=== PATIENT | female | born 1980 ===

== ENCOUNTER 2019-02-02 08:30 | Emergency (ER) | payer OTHER ==
[2019-02-02 08:30] VITALS: BMI 36.6
[2019-02-02 09:33] LABS: SQUAMOUS EPITHIAL 5 /hpf (0-5); URINE BACTERIA FEW (<OCC); URINE BILIRUBIN NEGATIVE (NEGATIVE); URINE BLOOD NEGATIVE (NEGATIVE); URINE CLARITY Hazy (Clear); URINE COLOR Yellow (YELLOW); URINE GLUCOSE (UA) NORMAL (Normal); URINE LEUKOCYTE ESTERASE NEG Leu/uL (Negative); URINE PROTEIN NEGATIVE (NEGATIVE); URINE UROBILINOGEN NORMAL mg/dL (0.2-1.0)
[2019-02-02] MEDS ORDERED: Sodium Chloride 0.9% 1,000 ML IV ONE (09:43)
[2019-02-02 10:02] LABS: BASO # 0.1 K/uL (0.0-0.2); BASO % 0.6 % (0.0-2.0); EOS # 0.2 K/uL (0.0-0.7); HEMOGLOBIN 12.3 g/dL (11.0-16.0); LYMPH # 3.1 K/uL (1.0-4.3); LYMPH % 29.6 % (20.0-40.0); MEAN CORPUSCULAR HEMOGLOBIN 26.2 pg (27.0-31.0); MEAN CORPUSCULAR HGB CONC 31.9 g/dL (33.0-37.0); MONO # 0.5 K/uL (0.0-0.8); MONO % 4.6 % (0.0-10.0); NEUT # 6.6 K/uL (1.8-7.0); NEUT % 63.2 % (50.0-75.0); RBC 4.68 Mil/uL (3.80-5.20); RED CELL DISTRIBUTION WIDTH 14.8 % (11.5-14.5); WHITE BLOOD COUNT 10.5 K/uL (4.8-10.8)
[2019-02-02] MEDS ORDERED: Sodium Chloride 0.9% 1,000 ML ONE (10:03)
[2019-02-02 10:16] LABS: ALB/GLOB RATIO 1.3 (1.0-2.1); ALBUMIN 4.5 g/dL (3.5-5.0); ALT/SGPT 47 U/L (9-52); AST/SGOT 47 U/L (14-36); BLOOD UREA NITROGEN 15 mg/dL (7-17); CALCIUM 9.2 mg/dl (8.6-10.4); GFR NON-AFRICAN AMERICAN > 60; LIPASE 50 U/L (23-300)
--- NOTE | 2019-02-02 10:22 | C.PDOC ---
History Of Present Illness 38 y/o female presents to the ER complaining of lower abdominal pain with associated nausea which has been present for the past 4 days. Patient states that she has history of irregular periods, ovarian cysts and possibly endometriosis. Patient reports that her normal LMP was on 10/26/18-11/05/18. She notes that she had some light brown vaginal bleeding in December and January 2019. She has history of miscarriages and D&C's. Denies having fever,chills, CP,SOB,vomiting, vaginal discharge, and vaginal bleeding. Time Seen by Provider: 02/02/19 09:06 Chief Complaint (Nursing): Female Genitourinary History Per: Patient History/Exam Limitations: no limitations Past Medical History Reviewed: Historical Data, Nursing Documentation, Vital Signs Vital Signs: Last Vital Signs Temp 98.4 F 02/02/19 08:37 Pulse 62 02/02/19 08:37 Resp 17 02/02/19 08:37 BP 146/103 H 02/02/19 08:37 Pulse Ox 100 02/02/19 08:37 - Medical History PMH: HTN (NO MEDS), Hypercholesterolemia (NO MEDS) Denies: Chronic Kidney Disease Other Surgeries: Hx of surgeries Family History: States: No Known Family Hx - Social History Hx Alcohol Use: Yes Hx Substance Use: No - Immunization History Hx Tetanus Toxoid Vaccination: No Hx Influenza Vaccination: No Hx Pneumococcal Vaccination: No Review Of Systems Except As Marked, All Systems Reviewed And Found Negative. Constitutional: Negative for: Fever, Chills Cardiovascular: Negative for: Chest Pain Respiratory: Negative for: Shortness of Breath Gastrointestinal: Positive for: Nausea, Abdominal Pain. Negative for: Vomiting Genitourinary: Negative for: Vaginal Discharge, Vaginal Bleeding Physical Exam - Physical Exam Appears: Non-toxic, No Acute Distress Skin: Normal Color, Warm, Dry Head: Atraumatic, Normacephalic Eye(s): bilateral: Normal Inspection Nose: Normal Oral Mucosa: Moist Neck: Supple Chest: Symmetrical Cardiovascular: Rhythm Regular Respiratory: Normal Breath Sounds, No Rales, No Rhonchi, No Wheezing Gastrointestinal/Abdominal: Bowel Sounds, Soft, Tenderness (mild tenderness to lower abdomen), No Guarding, No Rebound Neurological/Psych: Oriented x3, Normal Speech ED Course And Treatment - Laboratory Results Result Diagrams: 02/02/19 09:55 02/02/19 09:55 Lab Results: Urine Color Yellow (YELLOW) 02/02/19 09:24 Urine Clarity Hazy (Clear) 02/02/19 09:24 Urine pH 5.0 (5.0-8.0) 02/02/19 09:24 Ur Specific [place] 1.018 (1.003-1.030) 02/02/19 09:24 Urine Protein Negative mg/dL (NEGATIVE) 02/02/19 09:24 Urine Glucose (UA) Normal mg/dL (Normal) 02/02/19 09:24 Urine Ketones Negative mg/dL (NEGATIVE) 02/02/19 09:24 Urine Blood Negative (NEGATIVE) 02/02/19 09:24 Urine Nitrate Negative (NEGATIVE) 02/02/19 09:24 Urine Bilirubin Negative (NEGATIVE) 02/02/19 09:24 Urine Urobilinogen Normal mg/dL (0.2-1.0) 02/02/19 09:24 Ur Leukocyte Esterase Neg Adore/uL (Negative) 02/02/19 09:24 Urine WBC (Auto) 5 /hpf (0-5) 02/02/19 09:24 Urine RBC (Auto) 1 /hpf (0-3) 02/02/19 09:24 Ur Squamous Epith Cells 5 /hpf (0-5) 02/02/19 09:24 Urine Bacteria Few (<OCC) H 02/02/19 09:24 O2 Sat by Pulse Oximetry: 100 (RA) Pulse Ox Interpretation: Normal - CT Scan/US US_ Other Rad Studies (CT/US): Read By Radiologist, Radiology Report Reviewed CT/US Interpretation: Date of service: 02/02/2019. HISTORY: pelvic pain. COMPARISON: Pelvic ultrasound performed 09/03/16. TECHNIQUE: Real-time transabdominal pelvic ultrasound was performed. In addition a transvaginal pelvic ultrasound was necessary to better depict pelvic anatomy. FINDINGS: UTERUS: Measures 9.3 x 4.7 x 6.3 cm. Anteverted. Nonspecific calcification at the lower uterine segment measuring approximately 1 mm. ENDOMETRIUM: Abnormally thickened endometrium measuring approximately 2.3 cm in diameter. CERVIX: No cervical abnormality identified. RIGHT OVARY: Measures 3.0 x 2.0 x 4.2 cm. Blood flow is demonstrated. LEFT OVARY: Measures 1.5 x 2.8 x 1.9 cm. Blood flow is demonstrated. FREE FLUID: No significant free fluid noted. OTHER FINDINGS: None. IMPRESSION: Abnormally thickened endometrium measuring approximately 2.3 cm in diameter. Correlate clinically with phase of menstrual cycle. Recommend further evaluation with 6 week follow-up ultrasound and or hysteroscopy if indicated. This examination is predicated on a negative test. Correlate clinically. Medical Decision Making Medical Decision Making: Plan: --Labs --UA --US-Transvag. --IV Fluids --Zofran IV Updates: Pt re-eval. Pt states feeling much better. Denies any abd pain, n/v, or any other complaints at this time. Abd re-examined: Soft, NTTP, benign. Pt eating meal. Understands and agrees to immediately return to ER if increasing pain, vomiting, fevers, or any other concerning, worsening, new or continued sxs. Otherwise, states will f/u with PCP in 1-2 days. Patient is aware that early disease may be missed by US and to return in [place] for re-evaluation if any continued, worsening, new or continued symptoms. Patient states feeling better and would like to go home. Patient is very well appearing and non-toxic. Vital signs are stable. I discussed the results of the work-up, diagnosis and treatment. Written discharge instructions were provided to patient. Additional verbal instructions were given and discussed with patient. We discussed the importance of follow up with PCP/consultants. I also r eiterated reasons to immediately return to the ER including: worsening in current symptoms and/or new, continued, or concerning symptoms. Pt understood and agreed. Disposition Counseled Patient/Family Regarding: Studies Performed, Diagnosis, Need For Followup - Disposition Referrals: Yarely Knutson MD [Staff Provider] - [facility] [Outside] [facility] [Outside] Disposition: HOME/ ROUTINE Disposition Time: 13:47 Condition: IMPROVED Prescriptions: Naproxen [Naprosyn] 500 mg PO BID PRN #30 tablet PRN Reason: Pain, Moderate (4-7) Sulfamethoxazole/Trimethoprim [Bactrim DS 800 mg-160 mg] 1 tab PO BID #14 tab Instructions: Urinary Tract Infection, Adult (DC), Chronic Pelvic Pain (DC) Forms: [facility] (Ugandan), General Discharge Instructions - POA Present On Arrival: None - Clinical Impression Clinical Impression: Pelvic pain, UTI (urinary tract infection) - Scribe Statement The provider has reviewed the documentation as recorded by the Scribe Qiana Wagner Provider Attestation: All medical record entries made by the Scribe were at my direction and personally dictated by me. I have reviewed the chart and agree that the record accurately reflects my personal performance of the history, physical exam, medical decision making, and the department course for this patient. I have also personally directed, reviewed, and agree with the discharge instructions and disposition.
[2019-02-02 11:41] VITALS: BP 140/83; RESP 20; TEMP 98.5
--- NOTE | 2019-02-02 13:24 | US ---
Date of service: 02/02/2019 HISTORY: pelvic pain COMPARISON: Pelvic ultrasound performed 09/03/16 TECHNIQUE: Real-time transabdominal pelvic ultrasound was performed. In addition a transvaginal pelvic ultrasound was necessary to better depict pelvic anatomy. FINDINGS: UTERUS: Measures 9.3 x 4.7 x 6.3 cm. Anteverted. Nonspecific calcification at the lower uterine segment measuring approximately 1 mm. ENDOMETRIUM: Abnormally thickened endometrium measuring approximately 2.3 cm in diameter. CERVIX: No cervical abnormality identified. RIGHT OVARY: Measures 3.0 x 2.0 x 4.2 cm. Blood flow is demonstrated. LEFT OVARY: Measures 1.5 x 2.8 x 1.9 cm. Blood flow is demonstrated. FREE FLUID: No significant free fluid noted. OTHER FINDINGS: None. IMPRESSION: Abnormally thickened endometrium measuring approximately 2.3 cm in diameter. Correlate clinically with phase of menstrual cycle. Recommend further evaluation with 6 week follow-up ultrasound and or hysteroscopy if indicated. This examination is predicated on a negative test. Correlate clinically.
[2019-02-02 14:34] VITALS: PULSE 59
[2019-02-02 14:51] VITALS: O2SAT 100
== END 2019-02-02 14:34 | disposition home or self-care (01) ==
LOC: C.ER 08:30
DX: N39.0 Urinary tract infection, site not specified (principal); R10.2 Pelvic and perineal pain; E78.00 Pure hypercholesterolemia, unspecified; I10 Essential (primary) hypertension
CPT/HCPCS: 76830; 76856; 80053; 81001; 81025; 83690; 84702; 85025; 87086; 87181; 96361; 96374; 96375; 99285; J1885; J2405; J7030